=== PATIENT | male | born 1975 | race Caucasian/White ===

== ENCOUNTER → 2016-11-23 | Outpatient (CLI) | payer BC ==
--- NOTE | 2016-11-23 11:10 | ECHOS ---
DATE OF SERVICE: 11/23/2016 AGE: 41Y SEX: M HT: 6' WT: 340 lbs. Protocol Deangelo: X Others: Stress Echo Stage: IV Dur. of Exercise: 9:30 *Heart Rate Blood Pressure *Rest: 70 Rest: 128/85 * *Max. Achieved: 154 Maximum BP: 223/102 85% PMHR: 153 100% PMHR: 180 *METS: 10.8 INDICATIONS: Chest pain. MEDICATIONS: Baseline EKG revealed normal sinus rhythm without significant ST-T changes. Patient walked for 9 minutes, 30 seconds and achieved a maximum heart rate of 154 beats per minute, which is 85% of predicted maximum. Developed fatigue, shortness of breath, but did not have angina or arrhythmia. EKG did not reveal any ST segment changes to indicate ischemia. One isolated PVC was noted. By EKG criteria, this is a negative stress test with good exercise capacity. Baseline echo images were suboptimal. Definity was used for enhancement of images. The baseline images with Definity revealed good myocardial wall motion and wall thickening. At peak exercise, there was good augmentation of left ventricular wall motion and wall thickening of all segments suggesting that there is no evidence of stress-induced ischemia on this study. FINAL IMPRESSION: 1. Good exercise capacity with a negative stress test by EKG criteria. 2. Negative stress echocardiogram. Definity was used to enhance images.
== END | disposition home or self-care (01) ==
LOC: RADNMMAIN 09:04
PROVIDERS: ATTEND Family Medicine
DX: R07.9 Chest pain, unspecified (principal)
CPT/HCPCS: 93350; 93017; Q9957

== ENCOUNTER → 2016-12-26 | Outpatient (CLI) | payer BC ==
--- NOTE | 2016-12-26 22:23 | CONS ---
Sleep apnea. A 41-year-old obese male patient referred to me from [employer] [facility] after the patient screened positive for obstructive sleep apnea. He snores and he is obese with a BMI of 46.4 and he has a Mallampati class IV. He has an Bolckow score of 7. He has chronic fatigue and sleepiness during the day. He snores; however, he is not sure if he quits breathing. He goes to bed around 11:00 p.m. to midnight, wakes up between 6:00 a.m. to 8:00 a.m. in the morning. He does not fall asleep while driving or performing routine day-to-day activities. He has 2 jobs. 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 No recent weight gain. No family history of obstructive sleep apnea. PAST MEDICAL HISTORY: Negative. PAST SURGICAL HISTORY: Negative. ALLERGIES: Not known. MEDICATIONS: None. SOCIAL HISTORY: Nonsmoker. No history of alcohol. No history of IV drugs. He used to drink caffeinated soda in the past and he quit. FAMILY HISTORY: Negative for sleep apnea. REVIEW OF SYSTEMS: Twelve-point review of systems was done. Positive findings were all mentioned above in the history of present illness. BP is 116/73, pulse 70, respirations 18, temperature is 97.8. Bolckow score is at 7. Height is 5 feet 11 inches. Weight 338. BMI is 46.4. GENERAL APPEARANCE: Obese, calm, comfortable. HEENT: Short neck, crowding posterior pharynx. Mallampati class IV. No goiter or neck mass. LUNGS: Clear to auscultation. HEART: Sounds are regular rate and rhythm. Normal S1, S2. ABDOMEN: Soft, nontender. No organomegaly. EXTREMITIES: No edema. No cyanosis or clubbing. IMPRESSION: 1. Sleep apnea suspected clinically, currently under investigation. 2. Obesity, body mass index of 46.4. 3. Mallampati class IV. 4. Hypersomnia and fatigue with an Bolckow score of 7. 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 PLAN: 1. Proceed with a screening polysomnogram. 2. Encourage weight loss. 3. Implement good sleep hygiene measures. 4. Avoid caffeinated beverages. 5. Will continue to follow.
== END | disposition home or self-care (01) ==
LOC: SLEEP 17:15
PROVIDERS: ATTEND Internal Medicine Critical Care Medicine
DX: G47.10 Hypersomnia, unspecified (principal); E66.9 Obesity, unspecified; Z68.42 Body mass index [BMI] 45.0-49.9, adult
CPT/HCPCS: 99211

== ENCOUNTER 2017-02-26 09:23 | Day surgery (SDC) | payer BC ==
[2017-02-23 10:42] VITALS: BMI 45.4
[~2017-02-26 09:23] MED LIST: LACTATED RINGERS 1,000 ML IV SCH
[2017-02-26] MEDS ORDERED: LACTATED RINGERS 1,000 ML IV ONE (09:45)
[2017-02-26 09:56] VITALS: TEMP 98.1
[2017-02-26] MEDS ORDERED: LIDOCAINE 1% 20 ML VIAL (10MG/ML) FOR IV START INTRADERMA ONE (09:56)
[2017-02-26] MEDS ORDERED: PROPOFOL 10 MG/ML 20 ML VIAL IV ONE (10:57)
--- NOTE | 2017-02-26 11:00 | P.GSHP ---
History of Present Illness H&P Date: 02/26/17 Chief Complaint: History of colon polyps 's is a 41-year-old male referred from . Patient had a previous colonoscopy 2 years ago. He had benign adenomatous polyps removed at that time. He presents today for colonoscopy. Past Medical History Past Medical History: Deep Vein Thrombosis (DVT), Sleep Apnea/CPAP/BIPAP Additional Past Medical History / Comment(s): DVT-from a left leg injury, new dx. sleep apnea-using CPAP, hx. colon polyps History of Any Multi-Drug Resistant Organisms: None Reported Past Surgical History: No Surgical Hx Reported Additional Past Surgical History / Comment(s): colonoscopy Past Anesthesia/Blood Transfusion Reactions: No Reported Reaction Smoking Status: Never smoker - Past Family History Mother Family Medical History: No Reported History Medications and Allergies Home Medications Medication Instructions Recorded Confirmed Type No Known Home Medications [No 01/13/16 02/23/17 History Known Home Medications] Allergies Allergy/AdvReac Type Severity Reaction Status Date / Time No Known Allergies Allergy Verified 02/23/17 10:39 Surgical - Exam Vital Signs Temp Pulse Resp BP Pulse Ox 98.1 F 78 18 128/83 99 02/26/17 09:55 02/26/17 09:55 02/26/17 09:55 02/26/17 09:55 02/26/17 09:55 - General well developed, no distress - Eyes PERRL - ENT normal pinna - Neck no masses - Respiratory normal expansion - Cardiovascular Rhythm: regular - Abdomen Abdomen: soft, non tender Assessment and Plan Plan: History of colon polyps. We'll perform colonoscopy.
--- NOTE | 2017-02-26 11:08 | P.OP ---
Date of Procedure: 02/26/17 Preoperative Diagnosis: History of colon polyps Postoperative Diagnosis: Mild diverticular changes Procedure(s) Performed: Colonoscopy Implants: Anesthesia: MAC Surgeon: Louis Leon Pathology: none sent Condition: stable Disposition: PACU Indications for Procedure: Operative Findings: Description of Procedure: The patient was placed on the endoscopy table in the lateral position. He received IV sedation. Digital rectal exam was performed which revealed no abnormalities. The flexible colonoscope was then placed patient anus passed throughout the entire colon. The ileocecal valve was visualized. The flexible colonoscope withdrawn. The cecum and ascending colon appeared normal. Transverse colon appeared normal. In the descending; was mild diverticular changes. Scope was then brought back the rectum and this appeared normal. Scope was withdrawn for patient.
[2017-02-26 11:17] VITALS: RESP 16
[2017-02-26 13:01] VITALS: BP 144/89; PULSE 74
== END 2017-02-26 12:35 | disposition home or self-care (01) ==
LOC: ORWHC2ENDO 09:23
PROVIDERS: ATTEND Surgery
DX: Z12.11 Encounter for screening for malignant neoplasm of colon (principal); Z86.010 Personal history of colon polyps; K57.30 Diverticulosis of large intestine without perforation or abscess without bleeding; G47.33 Obstructive sleep apnea (adult) (pediatric); Z86.718 Personal history of other venous thrombosis and embolism; Z86.711 Personal history of pulmonary embolism; Z99.89 Dependence on other enabling machines and devices
CPT/HCPCS: J2704; G0105; 45378

== ENCOUNTER → 2017-03-29 | Outpatient (CLI) | payer BC ==
--- NOTE | 2017-03-29 13:29 | PN ---
PROGRESS NOTE DATE OF SERVICE: 03/29/2017 This 41-year-old gentleman has been followed in the sleep center for treatment of obstructive sleep apnea-hypopnea syndrome. Recently patient had been diagnosed with obstructive sleep apnea-hypopnea syndrome by home sleep apnea test and I discussed results of home sleep apnea test with patient in details. Subsequently, he was started on treatment with auto PAP with a range of pressure of 5 to 20 cm or water. I checked the patient's CPAP unit. It is on the auto Pap mode. CPAP pressure in the range from 5 to 20. Most of the time, pressure in the machine in the range of between 10 and 11 cm of water. Patient demonstrated good compliance with treatment. He is using equipment around 28 out of 30 nights and 24 out of 30 nights for more than 4 hours. Apnea-hypopnea index reading from the machine is 0.3, which indicated that his respiration is under control. [place] Sleepiness Scale today is 4. PHYSICAL EXAMINATION: GENERAL: During physical exam, patient in no distress. VITAL SIGNS BP 101/75 , HR 76 , RR 16, weight 345, temperature 98.9, oxygen saturation at room air 97%. HEENT PERRLA, EOMI, evaluation of oropharynx showed extremely low position of soft palate. NECK: Supple, no JVD. Thyroid is not palpable. LUNGS: Clear to percussion and to auscultation. Good air exchange. No wheezing or rhonchi. HEART: S1, S2 regular. No murmurs, gallops, or rubs. ABDOMEN: Soft and nontender. Bowel sounds are present. No organomegaly appreciated. EXTREMITIES: No clubbing or cyanosis. CLIENT ACCOUNT ASSISTANT: Awake, alert, and oriented X3. Cranial nerves 2 to 7 intact. There is no fasciculation or atrophy. noted. No focal deficits observed. IMPRESSION: 1. Obstructive sleep apnea-hypopnea syndrome on control with auto PAP. Patient demonstrated acceptable compliance with treatment. 2. Obesity. PLAN: 1. Continue treatment with CPAP every night for the whole night. 2. Aggressive losing weight. 3. Sleep hygiene with regular time in bed for at least 8 hours. 4. No driving if feeling any sleepiness. Patient is aware about civil and criminal liability for unsafe driving. 5. Continue treatment for obstructive sleep apnea-hypopnea syndrome with Dr. Noyola. Thank you very much for allowing me to participate in management of your patient. Sincerely, Charan Crawley MD, PhD, FAASM Diplomat of [place] [employer] [place] [employer] [facility] [place] MMKIM / ALEKSANDRA: [id number] /
== END | disposition home or self-care (01) ==
LOC: SLEEP 10:32
PROVIDERS: ATTEND Internal Medicine
DX: G47.33 Obstructive sleep apnea (adult) (pediatric) (principal); E66.9 Obesity, unspecified

== ENCOUNTER 2020-05-08 18:27 | Emergency (ER) | payer BC, OTHER ==
[2020-05-08 18:43] VITALS: TEMP 98.1
[2020-05-08] MEDS ORDERED: LIDOCAINE 1% INJ 10MG/ML (20 ML MDV) SQ ONE (18:57)
[2020-05-08] MEDS ORDERED: LIDOCAINE 1%-EPI 1:100,000 20 ML VIAL SQ STA (18:57)
[2020-05-08] MEDS ORDERED: DIPH,PERTUS(ACELL)TETVAC-LF 0.5 ML VIAL IM ONE (18:57)
--- NOTE | 2020-05-08 19:34 | XR ---
EXAMINATION TYPE: XR pelvis AP view DATE OF EXAM: 05/08/2020 COMPARISON: NONE HISTORY: Laceration of the thigh. TECHNIQUE: 2 views FINDINGS: The pelvic ring is intact. Proximal femurs and hip joints appear intact. Sacroiliac joints appear normal. IMPRESSION: Normal pelvis. No sign of a foreign body.
[2020-05-08] MEDS ORDERED: CEPHALEXIN 500MG STARTER PACK 4 CAP BTL PO STA (20:11)
[2020-05-08] MEDS ORDERED: CEPHALEXIN 500 MG CAP PO STA (20:11)
--- NOTE | 2020-05-08 20:36 | ED ---
General Adult HPI - General Chief complaint: Wound/Laceration Stated complaint: L Leg Injury Time Seen by Provider: 05/08/20 18:49 Source: patient, RN notes reviewed Mode of arrival: wheelchair Limitations: no limitations - History of Present Illness Initial comments: 44-year-old male presents to the emergency room for a chief complaint of laceration. Patient reports that he was riding a tractor approximately 2 miles per hour when a branch hit his leg and cut his left upper inner thigh. Patient reports he believes he needs stitches. Patient is not sure on his tetanus status and does agree to update immunization. Patient denies any numbness or tingling in the lower extremity. Denies any other injuries. Patient did not fall off of the tractor.Patient has no other complaints at this time including shortness of breath, chest pain, abdominal pain, nausea or vomiting, headache, or visual changes. - Related Data Previous Rx's Medication Instructions Recorded Cephalexin [Keflex] 500 mg PO Q6HR 7 Days #28 cap 05/08/20 Allergies Allergy/AdvReac Type Severity Reaction Status Date / Time No Known Allergies Allergy Verified 05/08/20 20:29 Review of Systems ROS Statement: Those systems with pertinent positive or pertinent negative responses have been documented in the HPI. ROS Other: All systems not noted in ROS Statement are negative. Past Medical History Past Medical History: Deep Vein Thrombosis (DVT), Sleep Apnea/CPAP/BIPAP Additional Past Medical History / Comment(s): DVT-from a left leg injury, new dx. sleep apnea-using CPAP, hx. colon polyps History of Any Multi-Drug Resistant Organisms: None Reported Past Surgical History: No Surgical Hx Reported Additional Past Surgical History / Comment(s): colonoscopy Past Anesthesia/Blood Transfusion Reactions: No Reported Reaction Past Psychological History: No Psychological Hx Reported Smoking Status: Never smoker Past Alcohol Use History: Rare Past Drug Use History: None Reported - Past Family History Mother Family Medical History: No Reported History General Exam Limitations: no limitations General appearance: alert, in no apparent distress Head exam: Present: atraumatic, normocephalic, normal inspection Eye exam: Present: normal appearance, PERRL, EOMI. Absent: scleral icterus, conjunctival injection, periorbital swelling ENT exam: Present: normal exam, mucous membranes moist Neck exam: Present: normal inspection, full ROM. Absent: tenderness, meningismus, lymphadenopathy Respiratory exam: Present: normal lung sounds bilaterally. Absent: respiratory distress, wheezes, rales, rhonchi, stridor Cardiovascular Exam: Present: regular rate, normal rhythm, normal heart sounds. Absent: systolic murmur, diastolic murmur, rubs, gallop, clicks GI/Abdominal exam: Present: soft, normal bowel sounds. Absent: distended, tenderness, guarding, rebound, rigid Extremities exam: Present: full ROM (Full range of motion in the left lower extremity including knee and hip.), normal capillary refill (Capillary refill less than 2 seconds, DP pulse 2+ in the left lower extremity. All compartments are soft.), other (7 cm laceration noted to the left medial proximal thigh. No evidence of foreign body. No evidence of infection at this time.). Absent: calf tenderness (No tenderness in the calf. Negative Homans sign.) Neurological exam: Present: alert Course Vital Signs 05/08/20 18:37 Temperature 98.1 F Pulse Rate 83 Respiratory 20 Rate Blood Pressure 181/78 O2 Sat by Pulse 97 Oximetry Procedures - Laceration Laceration #1 Consent Obtained: verbal consent Indication: laceration Site: lower extremity Size (cm): 7 Description: linear Depth: simple, single layer Anesthetic Used: lidocaine 1%, with epi Anesthesia Technique: local infiltration Amount (mls): 10 Pre-repair: wound explored, irrigated extensively (With 1 L of saline with Dr. Bermeo), deep structures intact, wound margins revised Type of Sutures: nylon Size of Sutures: 4-0 Number of Sutures: 11 Technique: simple, interrupted Patient Tolerated Procedure: well, no complications Medical Decision Making - Medical Decision Making Patient presents initially hypertensive which is likely related to pain. Vitals are otherwise within normal limits. Patient does have a 7 cm laceration noted to the left medial proximal thigh. I did revise margins to prevent crude tissue. X-ray was performed which did not show any sign of foreign body. I did a thorough irrigation of the wound with a liter of saline with Dr. Bermeo. He was able to evaluate the base of the wound. After thorough inspection we do not see any evidence of foreign body. Sterile procedure was used to suture the area closed with 11 simple interrupted sutures. We did discuss with patient that there is high risk of infection with the spoon given that it is deep. Patient was started on Keflex here in the emergency room. He was prophylactically treated. At this time tetanus was updated as well. Patient will be discharged home after instructions given. All questions answered. He will return in 10-14 days for suture removal. He will follow-up with his doctor for recheck. Disposition Clinical Impression: Laceration Disposition: HOME SELF-CARE Condition: Good Instructions (If sedation given, give patient instructions): Care For Your Stitches (ED), Laceration (ED) Additional Instructions: Please take antibiotic as directed. Keep the area clean with mild soap and water. Apply antibiotic ointment twice daily. Follow-up with your doctor for recheck as needed. However if you have worsening symptoms such as spreading or streaking redness, drainage, or fever return to the emergency room. Return in 10-14 days for suture removal. Prescriptions: Cephalexin [Keflex] 500 mg PO Q6HR 7 Days #28 cap Is patient prescribed a controlled substance at d/c from ED?: No Referrals: Mike Lyon DO [Primary Care Provider] - 1-2 days Time of Disposition: 20:35
[2020-05-08 21:12] VITALS: BP 148/86; PULSE 80; RESP 18
== END 2020-05-08 21:08 | disposition home or self-care (01) ==
LOC: EC 18:27
DX: S71.112A Laceration without foreign body, left thigh, initial encounter (principal); Z23 Encounter for immunization; G47.33 Obstructive sleep apnea (adult) (pediatric); Z99.89 Dependence on other enabling machines and devices; W22.8XXA Striking against or struck by other objects, initial encounter; Y92.89 Other specified places as the place of occurrence of the external cause
CPT/HCPCS: 72170; 90715; 99283; 90471; 12002; J2001

== ENCOUNTER 2020-05-10 16:57 | Observation (INO) | payer OTHER ==
[2020-05-10] MEDS ORDERED: AMPICILLIN-SULBACTAM 3 GM in SODIUM CHLORIDE 0.9% 100 ML IVPB STA (17:33)
[2020-05-10] MEDS ORDERED: VANCOMYCIN IV PER PHARMACY 1 EACH MISC MISCELLANE PRN (17:33)
[2020-05-10] MEDS ORDERED: SODIUM CHLORIDE 0.9% 1,000 ML IV STA (17:33)
--- NOTE | 2020-05-10 18:26 | ED ---
Recheck HPI - General Chief Complaint: Extremity Injury, Lower Stated Complaint: recheck - lt leg infection Time Seen by Provider: 05/10/20 17:12 Source: patient Mode of arrival: ambulatory Limitations: no limitations - History of Present Illness Initial Comments: his is a 44-year-old male with couple recent ER visits for evaluation. Patient recently had injury to left lower extremity left thigh requiring sutures secondary to being impaled by a tree while riding a tractor. Patient states that area despite antibiotics is Significantly Worse with Redness and Erythema. Swelling and Patient Is Developed Fever She Has History of Leg Issues Including Blood Clots As Well As Cellulitis MD Complaint: wound re-check, needs IV antibiotics Returns Today for: cellulitis follow-up, persistent/worsening pain related to initial visit Symptoms Since Prior Visit: worsening pain, worsening swelling, worsening redness, fever Associated Symptoms: fever, chills Treatments Prior to Arrival: Given Antibiotics on - Related Data Previous Rx's Medication Instructions Recorded Albuterol Sulfate [Proair Hfa] 1 - 2 puff INHALATION Q6HR PRN #1 05/13/20 inhaler Cephalexin [Keflex] 500 mg PO Q8HR 7 Days #21 cap 05/13/20 Sulfamethox-Tmp 800-160Mg [Bactrim 1 tab PO Q12HR 7 Days #14 tab 05/13/20 DS 800-160 mg] Allergies Allergy/AdvReac Type Severity Reaction Status Date / Time vancomycin AdvReac Swelling Verified 05/13/20 22:08 Review of Systems ROS Statement: Those systems with pertinent positive or pertinent negative responses have been documented in the HPI. ROS Other: All systems not noted in ROS Statement are negative. Past Medical History Past Medical History: Deep Vein Thrombosis (DVT), Sleep Apnea/CPAP/BIPAP Additional Past Medical History / Comment(s): DVT-from a left leg injury, new dx. sleep apnea-using CPAP, hx. colon polyps History of Any Multi-Drug Resistant Organisms: None Reported Past Surgical History: No Surgical Hx Reported Additional Past Surgical History / Comment(s): colonoscopy Past Anesthesia/Blood Transfusion Reactions: No Reported Reaction Past Psychological History: No Psychological Hx Reported Smoking Status: Never smoker Past Alcohol Use History: Rare Past Drug Use History: None Reported - Past Family History Mother Family Medical History: No Reported History General Exam Limitations: no limitations General appearance: alert, in no apparent distress Head exam: Present: atraumatic, normocephalic, normal inspection Eye exam: Present: normal appearance, PERRL, EOMI. Absent: scleral icterus, c onjunctival injection, periorbital swelling ENT exam: Present: normal exam, mucous membranes moist Neck exam: Present: normal inspection. Absent: tenderness, meningismus, lymphadenopathy Respiratory exam: Present: normal lung sounds bilaterally. Absent: respiratory distress, wheezes, rales, rhonchi, stridor Cardiovascular Exam: Present: regular rate, normal rhythm, normal heart sounds. Absent: systolic murmur, diastolic murmur, rubs, gallop, clicks GI/Abdominal exam: Present: soft, normal bowel sounds. Absent: distended, tenderness, guarding, rebound, rigid Extremities exam: Present: normal inspection, full ROM, normal capillary refill. Absent: tenderness, pedal edema, joint swelling, calf tenderness Back exam: Present: normal inspection Neurological exam: Present: alert, oriented X3, CN II-XII intact Psychiatric exam: Present: normal affect, normal mood Skin exam: Present: warm, dry, intact, normal color. Absent: rash Course Vital Signs 05/10/20 05/10/20 05/10/20 17:02 20:13 20:35 Temperature 99.2 F 101.8 F H 98.4 F Pulse Rate 96 93 Pulse Rate [ 82 Bilateral Radial] Respiratory 18 20 18 Rate Blood Pressure 153/96 137/80 Blood Pressure 118/62 [Left Arm] O2 Sat by Pulse 97 97 98 Oximetry 05/10/20 20:55 Temperature 101.8 F H Pulse Rate 93 Pulse Rate [ Bilateral Radial] Respiratory 20 Rate Blood Pressure 137/80 Blood Pressure [Left Arm] O2 Sat by Pulse 97 Oximetry - Reevaluation(s) Reevaluation #1: medical records reviewed No improvement in symptoms here in the ER Spoke with patient regarding findings need for IV antibiotics and he agrees Patient does complain of severe left flank pain pain difficult to control - Consultations Consultation #1: spoke with [facility] Dr Jalloh who refuses admission secondary to known infectious disease here in the hospital Consultation #2: spoke with [facility] were greater than with patient Procedures - Incision & Drainage Consent Obtained: verbal consent Site: lower extremity Anesthetic Used: lidocaine 1%, with epi I&D Cleaning Method: Betadine Sterile Field Used?: Yes Scalpel Used: #11 Needle Aspiration Performed?: Yes Irrigation Performed?: Yes I&D Drainage Obtained: Pus, Blood Culture Obtained?: No Complications: pain Patient Tolerated Procedure: well Medical Decision Making - Medical Decision Making 41 female DF for evaluation of left lower extremity cellulitis and suture secondary to penetrating injury. Despite antibiotics patient symptoms are significantly worsening. Patient does have fever with swelling and cellulitis surrounding of left lower extremity. Wound is open sutures were removedand patient's wound was cultured - Lab Data Result diagrams: 05/12/20 10:59 05/13/20 06:59 Lab Results 05/10/20 05/10/20 05/10/20 Range/Units 18:19 18:19 18:40 WBC 12.1 H (3.8-10.6) k/uL RBC 5.04 (4.30-5.90) m/uL Hgb 14.7 (13.0-17.5) gm/dL Hct 44.4 (39.0-53.0) % MCV 88.1 (80.0-100.0) fL MCH 29.1 (25.0-35.0) pg MCHC 33.1 (31.0-37.0) g/dL RDW 12.7 (11.5-15.5) % Plt Count 207 (150-450) k/uL Neutrophils % 72 % Lymphocytes % 16 % Monocytes % 7 % Eosinophils % 2 % Basophils % 2 % Neutrophils # 8.7 H (1.3-7.7) k/uL Lymphocytes # 2.0 (1.0-4.8) k/uL Monocytes # 0.9 (0-1.0) k/uL Eosinophils # 0.3 (0-0.7) k/uL Basophils # 0.2 (0-0.2) k/uL ESR 10 (0-15) mm/hr Sodium 138 (137-145) mmol/L Potassium 4.2 (3.5-5.1) mmol/L Chloride 104 (98-107) mmol/L Carbon Dioxide 28 (22-30) mmol/L Anion Gap 6 mmol/L BUN 17 (9-20) mg/dL Creatinine 0.81 (0.66-1.25) mg/dL Est GFR (CKD-EPI)AfAm >90 (>60 ml/min/1.73 sqM) Est GFR (CKD-EPI)NonAf >90 (>60 ml/min/1.73 sqM) Glucose 89 (74-99) mg/dL Calcium 9.0 (8.4-10.2) mg/dL Phosphorus 3.1 (2.5-4.5) mg/dL Magnesium 2.0 (1.6-2.3) mg/dL Total Bilirubin 0.7 (0.2-1.3) mg/dL AST 22 (17-59) U/L ALT 22 (4-49) U/L Alkaline Phosphatase 61 (38-126) U/L C-Reactive Protein (<10.0) mg/L Total Protein 7.0 (6.3-8.2) g/dL Albumin 4.1 (3.5-5.0) g/dL 05/10/20 05/11/20 Range/Units 18:40 08:04 WBC (3.8-10.6) k/uL RBC (4.30-5.90) m/uL Hgb (13.0-17.5) gm/dL Hct (39.0-53.0) % MCV (80.0-100.0) fL MCH (25.0-35.0) pg MCHC (31.0-37.0) g/dL RDW (11.5-15.5) % Plt Count (150-450) k/uL Neutrophils % % Lymphocytes % % Monocytes % % Eosinophils % % Basophils % % Neutrophils # (1.3-7.7) k/uL Lymphocytes # (1.0-4.8) k/uL Monocytes # (0-1.0) k/uL Eosinophils # (0-0.7) k/uL Basophils # (0-0.2) k/uL ESR (0-15) mm/hr Sodium (137-145) mmol/L Potassium (3.5-5.1) mmol/L Chloride (98-107) mmol/L Carbon Dioxide (22-30) mmol/L Anion Gap mmol/L BUN (9-20) mg/dL Creatinine 0.68 (0.66-1.25) mg/dL Est GFR (CKD-EPI)AfAm >90 (>60 ml/min/1.73 sqM) Est GFR (CKD-EPI)NonAf >90 (>60 ml/min/1.73 sqM) Glucose (74-99) mg/dL Calcium (8.4-10.2) mg/dL Phosphorus (2.5-4.5) mg/dL Magnesium (1.6-2.3) mg/dL Total Bilirubin (0.2-1.3) mg/dL AST (17-59) U/L ALT (4-49) U/L Alkaline Phosphatase (38-126) U/L C-Reactive Protein 57.0 H (<10.0) mg/L Total Protein (6.3-8.2) g/dL Albumin (3.5-5.0) g/dL - Radiology Data Radiology results: report reviewed (ultrasound left lower extremity negative for DVT likely abscess, x-ray negative for air), image reviewed Critical Care Time Critical Care Time: Yes Total Critical Care Time: 31 Disposition Clinical Impression: Cellulitis, Laceration, Wound abscess, Cellulitis of right leg, Leg swelling Disposition: ADMITTED IP TO THIS [facility] Condition: Good Is patient prescribed a controlled substance at d/c from ED?: No
[2020-05-10] MEDS ORDERED: VANCOMYCIN 2,500 MG in SODIUM CHLORIDE 0.9% 500 ML 500 ML IVPB ONE (18:30)
--- NOTE | 2020-05-10 18:41 | US ---
EXAMINATION TYPE: US extremity nonvasculr ltd LT DATE OF EXAM: 05/10/2020 COMPARISON: NONE CLINICAL HISTORY: abscess. On Sunday, patient states having a tree branch enter medial upper thigh. Redness of incision/stitches. Incision scanned. Fluid collection visualized underneath incision = 2.4 x 2.4 x 0.4 cm. Subcutaneous edema visualized. IMPRESSION: There is elongated fluid collection at the incision site that is 8 mm below the skin surf tiffany and could be hematoma or abscess.
[2020-05-10 18:43] LABS: Basophils # (A) 0.2 k/uL (0-0.2); Basophils % (A) 2 %; Eosinophils # (A) 0.3 k/uL (0-0.7); Eosinophils % (A) 2 %; HCT 44.4 % (39.0-53.0); HGB 14.7 gm/dL (13.0-17.5); Lymphocytes % (A) 16 %; MCH 29.1 pg (25.0-35.0); MCHC 33.1 g/dL (31.0-37.0); MCV 88.1 fL (80.0-100.0); Mean Platelet Volume 7.4; Monocytes # (A) 0.9 k/uL (0-1.0); Monocytes % (A) 7 %; Neutrophils # (A) 8.7 k/uL (1.3-7.7); Neutrophils % (A) 72 %; Platelet Count 207 k/uL (150-450); RBC 5.04 m/uL (4.30-5.90); RDW 12.7 % (11.5-15.5); WBC 12.1 k/uL (3.8-10.6)
[2020-05-10 18:53] LABS: ALT 22 U/L (4-49); AST 22 U/L (17-59); African American GFR (CKD) >90 (>60 ml/min/1.73 sqM); Albumin 4.1 g/dL (3.5-5.0); Alkaline Phosphatase 61 U/L (38-126); Anion Gap 6 mmol/L; Blood Urea Nitrogen 17 mg/dL (9-20); Carbon Dioxide 28 mmol/L (22-30); Chloride 104 mmol/L (98-107); Glucose 89 mg/dL (74-99); Non-African American GFR(CKD) >90 (>60 ml/min/1.73 sqM); Phosphorus 3.1 mg/dL (2.5-4.5); Potassium 4.2 mmol/L (3.5-5.1); Sodium 138 mmol/L (137-145); Total Bilirubin 0.7 mg/dL (0.2-1.3)
--- NOTE | 2020-05-10 19:42 | XR ---
EXAMINATION TYPE: XR femur LT DATE OF EXAM: 05/10/2020 COMPARISON: NONE HISTORY: Pain TECHNIQUE: 4 views FINDINGS: Hip joint and knee joint appear intact. I see no fracture nor dislocation. There is no evid ence of focal bone destruction. I see no evidence of radiopaque foreign body. IMPRESSION: Negative exam.
[2020-05-10] MEDS ORDERED: LIDOCAINE 1%-EPI 1:100,000 20 ML VIAL SQ STA (19:52)
[2020-05-10] MEDS ORDERED: ACETAMINOPHEN TAB 500 MG TAB PO STA (20:40)
[2020-05-10] MEDS ORDERED: MORPHINE SULFATE 4 MG/ML SYRINGE IVP STA (20:40)
[2020-05-10] MEDS ORDERED: IBUPROFEN 800 MG TAB PO STA (20:40)
[2020-05-10] MEDS ORDERED: MORPHINE SULFATE 4 MG/ML SYRINGE IVP PRN (20:40)
[2020-05-10] MEDS ORDERED: ACETAMINOPHEN TAB 325 MG TAB PO PRN (20:40)
[2020-05-11] MEDS: AMPICILLIN-SULBACTAM 3 GM in SODIUM CHLORIDE 0.9% 100 ML IVPB SCH ×3 (02:03→18:35)
[2020-05-11] MEDS: VANCOMYCIN 2,500 MG in SODIUM CHLORIDE 0.9% 500 ML 500 ML IVPB SCH ×3 (03:57→20:32)
[2020-05-11] MEDS ORDERED: diphenhydrAMINE 25 MG CAP PO PRN (05:11)
[2020-05-11] MEDS: SODIUM CHLORIDE 0.9% 1,000 ML IV SCH ×2 (06:08→18:36)
[2020-05-11 08:42] LABS: African American GFR (CKD) >90 (>60 ml/min/1.73 sqM); Non-African American GFR(CKD) >90 (>60 ml/min/1.73 sqM)
[2020-05-11] MEDS ORDERED: KETOROLAC 15 MG/ML 1 ML VIAL IVP PRN (10:55)
--- NOTE | 2020-05-11 12:21 | P.HPIM ---
History of Present Illness Patient is a pleasant 44-year-old male him in with a left leg infection after he injured his thigh on Sunday where at dry branch appears his thigh. Patient had sutures in that area wound cultures were obtained patient was started on Unasyn and vancomycin which is appropriate patient does have lymphadenopathy in the left groin area. Patient did have fever. Wound cultures presently are showing gram-negative bacilli. Awaiting wound cultures patient will be continued on these antibiotics. Review of Systems REVIEW OF SYSTEMS: CONSTITUTIONAL: No fever, no malaise, no fatigue. HEENT: No recent visual problems or hearing problems. Denied any sore throat. CARDIOVASCULAR: No chest pain, orthopnea, PND, no palpitations, no syncope. PULMONARY: No shortness of breath, no cough, no hemoptysis. GASTROINTESTINAL: No diarrhea, no nausea, no vomiting, no abdominal pain. NEUROLOGICAL: No headaches, no weakness, no numbness. HEMATOLOGICAL: Denies any bleeding or petechiae. GENITOURINARY: Denies any burning micturition, frequency, or urgency. MUSCULOSKELETAL/RHEUMATOLOGICAL: Denies any joint pain, swelling, or any muscle pain. ENDOCRINE: Denies any polyuria or polydipsia. The rest of the 14-point review of systems is negative. Past Medical History Past Medical History: Deep Vein Thrombosis (DVT), Sleep Apnea/CPAP/BIPAP Additional Past Medical History / Comment(s): DVT-from a left leg injury, new dx. sleep apnea-doesn't use pt states, hx. colon polyps, vertigo, History of Any Multi-Drug Resistant Organisms: None Reported Past Surgical History: No Surgical Hx Reported Additional Past Surgical History / Comment(s): colonoscopy Past Anesthesia/Blood Transfusion Reactions: No Reported Reaction Past Psychological History: No Psychological Hx Reported Smoking Status: Former smoker Past Alcohol Use History: Rare Past Drug Use History: None Reported Additional Drug Use History / Comment(s): pt states he only smoked socially. - Past Family History Mother Family Medical History: No Reported History Medications and Allergies Home Medications Medication Instructions Recorded Confirmed Type Cephalexin [Keflex] 500 mg PO QID 05/10/20 05/10/20 History Allergies Allergy/AdvReac Type Severity Reaction Status Date / Time No Known Allergies Allergy Verified 05/10/20 20:22 Physical Exam Vitals: Vital Signs Temp Pulse Pulse Resp BP BP Pulse Ox 05/11/20 07:47 97.9 F 77 18 137/88 97 05/11/20 04:40 97.8 F 90 16 120/82 99 05/11/20 03:00 97.7 F 71 18 114/77 99 05/10/20 21:00 98.4 F 82 18 118/62 98 05/10/20 20:55 101.8 F H 93 20 137/80 97 05/10/20 20:35 98.4 F 82 18 118/62 98 05/10/20 20:13 101.8 F H 93 20 137/80 97 05/10/20 17:02 99.2 F 96 18 153/96 97 Intake and Output 05/10/20 05/11/20 05/11/20 22:59 06:59 14:59 Other: Voiding Method Toilet Toilet # Voids 1 Weight 158.757 kg PHYSICAL EXAMINATION: GENERAL: The patient is alert and oriented x3, not in any acute distress. Well developed, well nourished. HEENT: Pupils are round and equally reacting to light. EOMI. No scleral icterus. No conjunctival pallor. Normocephalic, atraumatic. No pharyngeal erythema. No thyromegaly. CARDIOVASCULAR: S1 and S2 present. No murmurs, rubs, or gallops. PULMONARY: Chest is clear to auscultation, no wheezing or crackles. ABDOMEN: Soft, nontender, nondistended, normoactive bowel sounds. No palpable organomegaly. MUSCULOSKELETAL: No joint swelling or deformity. EXTREMITIES: No cyanosis, clubbing, or pedal edema. NEUROLOGICAL: Gross neurological examination did not reveal any focal deficits. SKIN: Left mid thigh them medial aspect there is a sutured laceration patient does have redness extending up to the mid leg area involving the whole thigh with tender lymphadenopathy in the left groin. Results CBC & Chem 7: 05/10/20 18:19 05/11/20 08:04 Labs: Abnormal Lab Results - Last 24 Hours (Table) 05/10/20 05/10/20 Range/Units 18:19 18:40 WBC 12.1 H (3.8-10.6) k/uL Neutrophils # 8.7 H (1.3-7.7) k/uL C-Reactive Protein 57.0 H (<10.0) mg/L Microbiology - Last 24 Hours (Table) 05/10/20 20:11 Gram Stain - Preliminary Thigh - Left Wound Culture - Preliminary 05/10/20 21:50 Anaerobic Culture - Preliminary Thigh - Left Thrombosis Risk Factor Assmnt - Choose All That Apply Any of the Below Risk Factors Present?: Yes Each Factor Represents 1 point: Age 41-60 years, Obesity (BMI >25) Other Risk Factors: No Other congenital or acquired thrombophilia - If yes, enter type in comment: No Thrombosis Risk Factor Assessment Total Risk Factor Score: 2 Thrombosis Risk Factor Assessment Level: Low Risk Assessment and Plan Plan: -Left thigh cellulitis, abscess: Considering the nature of injury will continue with both Vanco mycin and Unasyn awaiting the finalization of the wound cultures. -Sepsis secondary to above -History of DVT in the past patient will be on DVT prophylaxis here -Sleep apnea and uses CPAP machine at home.
[2020-05-11] MEDS: FAMOTIDINE 20 MG TAB PO SCH (20:32)
[2020-05-12] MEDS: AMPICILLIN-SULBACTAM 3 GM in SODIUM CHLORIDE 0.9% 100 ML IVPB SCH ×3 (02:35→17:34)
[2020-05-12] MEDS: VANCOMYCIN 2,500 MG in SODIUM CHLORIDE 0.9% 500 ML 500 ML IVPB SCH ×3 (03:54→19:38)
[2020-05-12] MEDS: FAMOTIDINE 20 MG TAB PO SCH ×2 (10:08→20:33)
[2020-05-12] MEDS: ENOXAPARIN 40 MG/0.4 ML SYRINGE SQ SCH (10:09)
[2020-05-12] MEDS: SODIUM CHLORIDE 0.9% 1,000 ML IV SCH ×2 (10:10→20:33)
[2020-05-12 11:16] LABS: HCT 42.1 % (39.0-53.0); HGB 13.6 gm/dL (13.0-17.5); MCH 29.1 pg (25.0-35.0); MCHC 32.3 g/dL (31.0-37.0); MCV 90.1 fL (80.0-100.0); RBC 4.68 m/uL (4.30-5.90); WBC 9.8 k/uL (3.8-10.6)
[2020-05-12 11:17] LABS: Mean Platelet Volume 7.2; Platelet Count 214 k/uL (150-450); RDW 13.2 % (11.5-15.5)
[2020-05-12 11:30] LABS: African American GFR (CKD) >90 (>60 ml/min/1.73 sqM); Anion Gap 3 mmol/L; Blood Urea Nitrogen 8 mg/dL (9-20); Calcium 8.6 mg/dL (8.4-10.2); Carbon Dioxide 29 mmol/L (22-30); Chloride 107 mmol/L (98-107); Glucose 92 mg/dL (74-99); Non-African American GFR(CKD) >90 (>60 ml/min/1.73 sqM); Potassium 4.2 mmol/L (3.5-5.1); Sodium 139 mmol/L (137-145)
--- NOTE | 2020-05-13 00:14 | P.PN ---
Subjective Progress Note Date: 05/12/20 Principal diagnosis: Left thigh cellulitis, abscess Patient is a pleasant 44-year-old male him in with a left leg infection after he injured his thigh on Sunday where at branch appears his thigh. Patient had sutures in that area wound cultures were obtained patient was started on Unasyn and vancomycin which is appropriate patient does have lymphadenopathy in the left groin area. Patient did have fever. Wound cultures presently are showing gram-negative bacilli. 05/12/2020 Patient is currently sitting on the side of the bed. Still having left thigh wound swelling and induration which is improving. Wound cultures growing gram-negative bacilli and awaiting final culture reports. Continue with current broad-spectrum antibiotics in the form of vancomycin and Unasyn. Laboratory data showed WBC 9.8, hemoglobin 13.6 Patient has been afebrile. No complaints of chest pain or shortness of breath. No nausea vomiting or abdominal pain or diarrhea. Current medications reviewed. Objective - Vital Signs Vital signs: Vital Signs Temp 97.7 F 05/12/20 14:34 Pulse 80 05/12/20 14:34 Resp 16 05/12/20 14:34 BP 150/83 05/12/20 14:34 Pulse Ox 98 05/12/20 14:34 Intake & Output 05/11/20 05/12/20 05/12/20 18:59 06:59 18:59 Output Total 2 Balance -2 Output: Urine/Stool Mix 2 Other: Voiding Method Toilet # Voids 1 1 1 - Exam PHYSICAL EXAMINATION: GENERAL: The patient is alert and oriented x3, not in any acute distress. Well developed, well nourished. HEENT: Pupils are round and equally reacting to light. EOMI. No scleral icterus. No conjunctival pallor. Normocephalic, atraumatic. No pharyngeal erythema. No thyromegaly. CARDIOVASCULAR: S1 and S2 present. No murmurs, rubs, or gallops. PULMONARY: Chest is clear to auscultation, no wheezing or crackles. ABDOMEN: Soft, nontender, nondistended, normoactive bowel sounds. No palpable organomegaly. MUSCULOSKELETAL: No joint swelling or deformity. EXTREMITIES: No cyanosis, clubbing, or pedal edema. NEUROLOGICAL: Gross neurological examination did not reveal any focal deficits. SKIN: Left mid thigh them medial aspect there is a sutured laceration patient does have redness extending up to the knee area involving the whole thigh with tender lymphadenopathy in the left groin. - Labs CBC & Chem 7: 05/12/20 10:59 05/12/20 10:59 Labs: Abnormal Lab Results - Last 24 Hours (Table) 05/12/20 Range/Units 10:59 BUN 8 L (9-20) mg/dL Microbiology - Last 24 Hours (Table) 05/10/20 18:40 Blood Culture - Preliminary Blood No Growth after 24 hours 05/10/20 20:11 Gram Stain - Preliminary Thigh - Left Wound Culture - Preliminary Gram Neg Bacilli Assessment and Plan Assessment: -Left thigh cellulitis, abscess: Considering the nature of injury will continue with both Vanco mycin and Unasyn awaiting the finalization of the wound cultures. -Sepsis secondary to above -History of DVT in the past patient will be on DVT prophylaxis here -Sleep apnea and uses CPAP machine at home.
[2020-05-13] MEDS: AMPICILLIN-SULBACTAM 3 GM in SODIUM CHLORIDE 0.9% 100 ML IVPB SCH ×2 (01:17→08:19)
[2020-05-13] MEDS: VANCOMYCIN 2,500 MG in SODIUM CHLORIDE 0.9% 500 ML 500 ML IVPB SCH ×2 (02:58→11:14)
[2020-05-13 07:29] LABS: African American GFR (CKD) >90 (>60 ml/min/1.73 sqM); Non-African American GFR(CKD) >90 (>60 ml/min/1.73 sqM)
[2020-05-13] MEDS: FAMOTIDINE 20 MG TAB PO SCH (08:19)
[2020-05-13] MEDS: ENOXAPARIN 40 MG/0.4 ML SYRINGE SQ SCH (08:19)
[2020-05-13] MEDS: SODIUM CHLORIDE 0.9% 1,000 ML IV SCH (08:19)
[2020-05-13 14:06] VITALS: BP 115/72; PULSE 72; RESP 16; TEMP 98.6
[2020-05-14] MEDS ORDERED: VANCOMYCIN TROUGH DUE 1 EACH MISC MISCELLANE ONE (03:00)
--- NOTE | 2020-05-27 21:52 | P.DS ---
Providers Date of admission: 05/10/20 20:09 Expected date of discharge: 05/13/20 Attending physician: Judith Anthony Primary care physician: Mike Camron [place] [facility] Course: Discharge diagnosis -Left thigh cellulitis, abscess: Considering the nature of injury continue with both Vanco mycin and Unasyn awaiting the finalization of the wound cultures. -Sepsis secondary to above -History of DVT in the past patient will be on DVT prophylaxis here -Sleep apnea and uses CPAP machine at home. Hospital course Patient is a pleasant 44-year-old male him in with a left leg infection after he injured his thigh on Sunday where at dry branch appears his thigh. Patient had sutures in that area wound cultures were obtained patient was started on Unasyn and vancomycin which is appropriate patient does have lymphadenopathy in the left groin area. Patient did have fever. Wound cultures presently are showing gram-negative bacilli. 05/12/2020 Patient is currently sitting on the side of the bed. Still having left thigh wound swelling and induration which is improving. Wound cultures growing gram- negative bacilli and awaiting final culture reports. Continue with current broad-spectrum antibiotics in the form of vancomycin and Unasyn. Laboratory data showed WBC 9.8, hemoglobin 13.6 Patient has been afebrile. No complaints of chest pain or shortness of breath. No nausea vomiting or abdominal pain or diarrhea. 05/13/2020 Patient is currently sitting on the side of the bed. Left thigh swelling and redness is much improved now. Sutures are intact and dry and healing well. P atient will be continued on oral antibiotics to complete the course. Patient has been afebrile overnight. Denied any worsening pain. Patient is being discharged home today. Patient was recommended to follow-up with her primary care physician for final antibiotic recommendations pending cultures. No complaints of chest pain or shortness breath. No headache or dizziness or lightheadedness. Patient wishes to be discharged home today. Discharge physical examination was done and vitals reviewed. Patient Condition at Discharge: Good Plan - Discharge Summary Discharge Rx Participant: No New Discharge Prescriptions: New Sulfamethox-Tmp 800-160Mg [Bactrim DS 800-160 mg] 1 tab PO Q12HR 7 Days #14 tab Cephalexin [Keflex] 500 mg PO Q8HR 7 Days #21 cap Discontinued Cephalexin [Keflex] 500 mg PO QID No Action Albuterol Sulfate [Proair Hfa] 1 - 2 puff INHALATION Q6HR PRN #1 inhaler PRN Reason: Dyspnea Discharge Medication List Albuterol Sulfate [Proair Hfa] 1 - 2 puff INHALATION Q6HR PRN #1 inhaler 05/13/20 [Rx] Cephalexin [Keflex] 500 mg PO Q8HR 7 Days #21 cap 05/13/20 [Rx] Sulfamethox-Tmp 800-160Mg [Bactrim DS 800-160 mg] 1 tab PO Q12HR 7 Days #14 tab 05/13/20 [Rx] Follow up Appointment(s)/Referral(s): Mike Lyon DO [Primary Care Provider] - 1-2 days Patient Instructions/Handouts: Cellulitis (DC) Discharge Disposition: HOME SELF-CARE
== END 2020-05-13 16:10 | disposition home or self-care (01) ==
LOC: EC 16:57 → 1SOBS 20:09 → INTOOBSV 05-11 12:40 → OBSVTOIN 05-11 12:40 → UNDODISIN 05-13 16:10
PROVIDERS: ADMIT Hospitalist; ATTEND Hospitalist
DX: A41.50 Gram-negative sepsis, unspecified (principal); L03.116 Cellulitis of left lower limb; L02.416 Cutaneous abscess of left lower limb; G47.30 Sleep apnea, unspecified; Z99.89 Dependence on other enabling machines and devices; E66.9 Obesity, unspecified; Z68.42 Body mass index [BMI] 45.0-49.9, adult; Z79.899 Other long term (current) drug therapy; Z88.1 Allergy status to other antibiotic agents; Z86.718 Personal history of other venous thrombosis and embolism; Z86.010 Personal history of colon polyps; Z87.891 Personal history of nicotine dependence
CPT/HCPCS: 96361 ×3; 96366 ×4; 96372 ×2; 96365; 96367; 99285; 10060; 36415; 80053; 80048; 85652; 82565 ×2; 83735; 84100; 85025; 85027; 80202; 86140; 87040; 87070; 87205; 87075; 87077; 87186; 73552; 76882; G0378 ×4; J3370 ×4; J1650 ×2; J0295 ×4

== ENCOUNTER 2020-05-13 21:09 | Emergency (ER) | payer OTHER ==
[2020-05-13 21:14] VITALS: BP 156/81; PULSE 87; RESP 16; TEMP 98.1
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
== END 2020-05-13 22:54 | disposition home or self-care (01) ==
LOC: EC 21:09
DX: S71.112A Laceration without foreign body, left thigh, initial encounter (principal); Z88.1 Allergy status to other antibiotic agents; G47.33 Obstructive sleep apnea (adult) (pediatric); Z99.89 Dependence on other enabling machines and devices; Z86.718 Personal history of other venous thrombosis and embolism; Z87.891 Personal history of nicotine dependence; W22.8XXA Striking against or struck by other objects, initial encounter
CPT/HCPCS: 99283

== ENCOUNTER → 2023-09-12 | Outpatient (CLI) | payer OTHER ==
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
== END | disposition home or self-care (01) ==
LOC: RADUSWWP 15:50
PROVIDERS: ATTEND Family Medicine
DX: M79.662 Pain in left lower leg (principal); M79.605 Pain in left leg